=== PATIENT | male | born 1995 | race African-American/Black ===

== ENCOUNTER 2017-10-25 12:01 | Emergency (ER) | payer SELFPAY ==
[2017-10-25 12:13] VITALS: BP 153/73
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
== END 2017-10-25 13:45 | disposition home or self-care (01) ==
LOC: ER 12:01
DX: S61.401D Unspecified open wound of right hand, subsequent encounter (principal); W32.0XXD Accidental handgun discharge, subsequent encounter; Z98.890 Other specified postprocedural states
CPT/HCPCS: 99282